=== PATIENT | male | born 1975 | race Caucasian/White ===

== ENCOUNTER 2017-02-02 19:11 | Emergency (ER) | payer SELFPAY ==
[~2017-02-02] VITALS: Ht 167.6 cm; Wt 75.3 kg
[2017-02-02 19:16] VITALS: BP 162/96
== END 2017-02-02 20:18 | disposition home or self-care (01) ==
LOC: ED 20:00
DX: S83.92XA Sprain of unspecified site of left knee, initial encounter (principal); V29.49XA Motorcycle driver injured in collision with other motor vehicles in traffic accident, initial encounter; Y93.89 Activity, other specified; Y99.8 Other external cause status; Y92.89 Other specified places as the place of occurrence of the external cause
CPT/HCPCS: 29505